=== PATIENT | female | born 1980 | race Caucasian/White ===

== ENCOUNTER 2018-08-24 10:03 | Outpatient (RCR) | payer MEDICARE ==
[2018-08-15] MEDS: IRON SUCROSE 200 MG/10 ML (VENOFER) VIAL IV SCH (13:31)
[2018-08-15 13:33] VITALS: BP 130/89
[2018-08-17 10:44] VITALS: BP 122/82
[2018-08-17] MEDS: IRON SUCROSE 200 MG/10 ML (VENOFER) VIAL IV SCH (12:56)
[2018-08-20 10:26] VITALS: BP 128/90
[2018-08-20] MEDS: IRON SUCROSE 200 MG/10 ML (VENOFER) VIAL IV SCH (10:39)
[2018-08-22] MEDS: IRON SUCROSE 200 MG/10 ML (VENOFER) VIAL IV SCH (09:45)
[2018-08-22 09:46] VITALS: BP 127/86
[~2018-08-24] VITALS: Ht 172.7 cm; Wt 68.5 kg
[~2018-08-24 10:03] MED LIST: AGM875T PO; ALPR0.5T7 PO; CITA-105 PO; DIAZ5TAB3 PO; DIPH25TA82 PO; FENT1PAT6; FLUT16SP22; HYDR-1231 PO; HYDR-690; IBUP-1773 PO; METR500T PO; NORE0.3518 PO; OMEP20CA12 PO; PEDI18TA2 PO; RANI75TA30 PO; TRAM50TA2 PO
[2018-08-24 10:04] VITALS: BP 135/92
[2018-08-24] MEDS ORDERED: IRON SUCROSE 200 MG/10 ML (VENOFER) VIAL IV ONE (10:08)
[2018-08-24] MEDS: IRON SUCROSE 200 MG/10 ML (VENOFER) VIAL IV SCH (10:15)
== END 2018-08-24 10:45 | disposition home or self-care (01) ==
LOC: SDC 10:03
PROVIDERS: ATTEND Family Medicine
DX: D50.9 Iron deficiency anemia, unspecified (principal)
CPT/HCPCS: 96365

== ENCOUNTER 2018-11-07 09:48 | Outpatient (RCR) | payer MEDICARE ==
[2018-09-20 14:50] LABS: ABSOLUTE RETIC # 37 10e9/L (24-90); BASOPHILS % (AUTO) 0 % (0-10); EOSINOPHILS % (AUTO) 1 % (0-10); HEMATOCRIT 36 % (35-52); HEMOGLOBIN 10.3 G/DL (11.5-16.0); LYMPHOCYTES # (AUTO) 1.7 X 10^3 (1.0-4.0); LYMPHOCYTES % (AUTO) 37 % (12-44); MEAN CORPUSCULAR HEMOGLOBIN 24 PG (25-34); MEAN CORPUSCULAR HGB CONC 29 G/DL (32-36); MEAN CORPUSCULAR VOLUME 81 FL (80-99); MONOCYTES # (AUTO) 0.4 X 10^3 (0.0-1.0); MONOCYTES % (AUTO) 8 % (0-12); NEUTROPHILS # (AUTO) 2.4 X 10^3 (1.8-7.8); NEUTROPHILS % (AUTO) 54 % (42-75); PLATELET COUNT 159 10^3/uL (130-400); RETICULOCYTE % 0.85 % (0.50-2.40); WHITE BLOOD COUNT 4.5 10^3/uL (4.3-11.0)
[2018-09-20 15:17] LABS: ALANINE AMINOTRANSFERASE 49 U/L (0-55); ALBUMIN 4.4 GM/DL (3.2-4.5); ALKALINE PHOSPHATASE 74 U/L (40-136); BILIRUBIN,TOTAL 0.3 MG/DL (0.1-1.0); BUN/CREATININE RATIO 10; CALCIUM 9.3 MG/DL (8.5-10.1); CARBON DIOXIDE 23 MMOL/L (21-32); CHLORIDE 107 MMOL/L (98-107); CREATININE SERUM 0.73 MG/DL (0.60-1.30); GFR ESTIMATED > 60; GLUCOSE 90 MG/DL (70-105); POTASSIUM 3.7 MMOL/L (3.6-5.0); SODIUM 140 MMOL/L (135-145); TOTAL PROTEIN 6.9 GM/DL (6.4-8.2)
[2018-10-31 11:36] LABS: BASOPHILS % (AUTO) 1 % (0-10); EOSINOPHILS # (AUTO) 0.1 10^3/uL (0.0-0.3); EOSINOPHILS % (AUTO) 2 % (0-10); HEMATOCRIT 41 % (35-52); HEMOGLOBIN 12.9 G/DL (11.5-16.0); LYMPHOCYTES # (AUTO) 1.2 X 10^3 (1.0-4.0); LYMPHOCYTES % (AUTO) 28 % (12-44); MEAN CORPUSCULAR HEMOGLOBIN 29 PG (25-34); MEAN CORPUSCULAR HGB CONC 32 G/DL (32-36); MEAN CORPUSCULAR VOLUME 92 FL (80-99); MONOCYTES # (AUTO) 0.4 X 10^3 (0.0-1.0); MONOCYTES % (AUTO) 10 % (0-12); NEUTROPHILS # (AUTO) 2.5 X 10^3 (1.8-7.8); NEUTROPHILS % (AUTO) 59 % (42-75); PLATELET COUNT 155 10^3/uL (130-400); RED CELL DISTRIBUTION WIDTH 23.8 % (10.0-14.5); WHITE BLOOD COUNT 4.3 10^3/uL (4.3-11.0)
[2018-10-31 11:53] LABS: PROTHROMBIN TIME PATIENT 13.2 SEC (12.2-14.7)
[2018-10-31 12:01] LABS: ALANINE AMINOTRANSFERASE 44 U/L (0-55); ALBUMIN 4.1 GM/DL (3.2-4.5); ALKALINE PHOSPHATASE 86 U/L (40-136); BILIRUBIN,TOTAL 0.3 MG/DL (0.1-1.0); BUN/CREATININE RATIO 13; CALCIUM 9.1 MG/DL (8.5-10.1); CARBON DIOXIDE 25 MMOL/L (21-32); CHLORIDE 103 MMOL/L (98-107); CREATININE SERUM 0.77 MG/DL (0.60-1.30); GFR ESTIMATED > 60; GLUCOSE 93 MG/DL (70-105); POTASSIUM 4.5 MMOL/L (3.6-5.0); SODIUM 137 MMOL/L (135-145); TOTAL PROTEIN 6.4 GM/DL (6.4-8.2)
[~2018-11-07 09:48] MED LIST changes: +FERRIC CARBOXYMALTOSE (CANCER) 750 MG in NS (IVPB) CANCER CENTER 250 ML IV SCH
== END 2018-12-19 | disposition home or self-care (01) ==
LOC: ONC 09:48
PROVIDERS: ATTEND Internal Medicine Hematology & Oncology
DX: D50.9 Iron deficiency anemia, unspecified (principal); J45.909 Unspecified asthma, uncomplicated; F10.21 Alcohol dependence, in remission; Z98.84 Bariatric surgery status; Z79.899 Other long term (current) drug therapy
CPT/HCPCS: 36415; 80053; 82728; 83540; 85025; 85045; 85610; 96365; 99213; 99214

== ENCOUNTER 2019-02-19 09:56 | Outpatient (RCR) | payer MEDICARE ==
[2019-02-11 09:50] LABS: BASOPHILS % (AUTO) 1 % (0-10); EOSINOPHILS # (AUTO) 0.1 10^3/uL (0.0-0.3); EOSINOPHILS % (AUTO) 2 % (0-10); HEMATOCRIT 42 % (35-52); LYMPHOCYTES # (AUTO) 1.3 X 10^3 (1.0-4.0); LYMPHOCYTES % (AUTO) 22 % (12-44); MEAN CORPUSCULAR HEMOGLOBIN 31 PG (25-34); MEAN CORPUSCULAR HGB CONC 33 G/DL (32-36); MEAN CORPUSCULAR VOLUME 95 FL (80-99); MEAN PLATELET VOLUME 12.1 FL (7.4-10.4); MONOCYTES # (AUTO) 0.7 X 10^3 (0.0-1.0); MONOCYTES % (AUTO) 11 % (0-12); NEUTROPHILS # (AUTO) 3.7 X 10^3 (1.8-7.8); NEUTROPHILS % (AUTO) 64 % (42-75); PLATELET COUNT 146 10^3/uL (130-400); RED CELL DISTRIBUTION WIDTH 15.9 % (10.0-14.5); WHITE BLOOD COUNT 5.8 10^3/uL (4.3-11.0)
[2019-02-11 10:12] LABS: ALANINE AMINOTRANSFERASE 32 U/L (0-55); ALBUMIN 4.1 GM/DL (3.2-4.5); ALKALINE PHOSPHATASE 65 U/L (40-136); BILIRUBIN,TOTAL 0.3 MG/DL (0.1-1.0); BUN/CREATININE RATIO 9; CALCIUM 8.6 MG/DL (8.5-10.1); CARBON DIOXIDE 24 MMOL/L (21-32); CHLORIDE 105 MMOL/L (98-107); CREATININE SERUM 0.75 MG/DL (0.60-1.30); GFR ESTIMATED > 60; GLUCOSE 91 MG/DL (70-105); POTASSIUM 4.1 MMOL/L (3.6-5.0); SODIUM 140 MMOL/L (135-145); TOTAL PROTEIN 6.6 GM/DL (6.4-8.2)
== END 2019-05-12 | disposition home or self-care (01) ==
LOC: ONC 09:56
PROVIDERS: ATTEND Internal Medicine Hematology & Oncology
DX: D50.8 Other iron deficiency anemias (principal); K90.9 Intestinal malabsorption, unspecified; Z98.84 Bariatric surgery status; Z87.19 Personal history of other diseases of the digestive system; Z72.0 Tobacco use
CPT/HCPCS: 36415; 80053; 82728; 85025; 96365

== ENCOUNTER 2023-01-01 10:48 | Emergency (ER) | payer MEDICARE ==
[~2023-01-01] VITALS: Ht 170 cm; Wt 66.3 kg
[~2023-01-01 10:48] MED LIST changes: -FERRIC CARBOXYMALTOSE (CANCER) 750 MG in NS (IVPB) CANCER CENTER 250 ML IV SCH
[2023-01-01] MEDS ORDERED: diphenhydrAMINE INJ 50 MG/ML VIAL IM ONE (11:00)
[2023-01-01] MEDS ORDERED: ACETAMINOPHEN 500 MG TABLET PO ONE (11:00)
[2023-01-01] MEDS ORDERED: PROCHLORPERAZINE INJ 10 MG/2ML VIAL IM ONE (11:00)
[2023-01-01] MEDS ORDERED: KETOROLAC INJ 15 MG/ML VIAL IM ONE (11:00)
--- NOTE | 2023-01-01 11:05 | ED General ---
General Chief Complaint: General Problems/Pain Stated Complaint: ELEV BP Source of Information: Patient, RN/MD Exam Limitations: No Limitations History of Present Illness Date Seen by Provider: Jan 01, 2023 Time Seen by Provider: 10:51 Initial Comments 42-year-old female with past medical history of chronic migraines and anxiety coming in as a referral from the walk-in clinic due to headache and elevated blood pressure. Her blood pressure is typically normal, its been elevated the past couple days more than 200 systolic. She states she is had a lot of changes in her medications over the past 2 and half weeks. She was started on metoprolol 2 and half weeks ago, and taken off some of her anxiety medications including her Xanax roughly 3 months ago. She now is taking duloxetine which she states gives her headache in the morning when she takes it. She states she has a headache every morning until roughly 11 AM. She has not taken anything for it as of yet. Her typical headache is on the right side of her head, this once more on the left voodoo as well which is new. It is much better today than it was yesterday. Denies any neck stiffness, fever, vision changes, weakness, numbness, or any other concerns. Allergies and Home Medications Allergies Coded Allergies: No Known Drug Allergies (Unverified , 05/16/14) Patient Home Medication List Home Medication List Reviewed: Yes Alprazolam (Alprazolam) 0.5 Mg Tablet, 0.5 MG PO Q6H PRN for ANXIETY, (Reported) Entered as Reported by: SUSAN ALVAREZ on 08/20/142056 Citalopram Hydrobromide (Citalopram Hbr) 40 Mg Tablet, 40 MG PO DAILY, (Reported) Entered as Reported by: SUSAN ALVAREZ on 08/20/142056 Diphenhydramine Hcl (Diphenhydramine 25 Mg) 25 Mg Tablet, 25-50 MG PO HS, (Reported) Entered as Reported by: LEATHA WILKS on 08/21/14 0940 Fluticasone Propionate (Flonase Nasal [place]) 16 Gm Naspr, 1 SPRAY NA BID PRN for ALLERGIES, (Reported) Entered as Reported by: SUSAN ALVAREZ on 08/20/142056 Ibuprofen (Ibuprofen) 600 Mg Tablet, 600 MG PO Q6H Prescribed by: LEDA MA on 11/26/14 1359 Lisinopril (Lisinopril) 5 Mg Tablet, 5 MG PO DAILY Prescribed by: VDEA DYSON on 01/01/23 1141 Norethindrone (Jencycla) 0.35 Mg Tablet, 0.35 MG PO DAILY, (Reported) Entered as Reported by: SUSAN ALVAREZ on 08/20/142056 Omeprazole (Omeprazole) 20 Mg Capsule.dr, 40 MG PO DAILY PRN for ACID REFLUX, (Reported) Entered as Reported by: LEATHA WILKS on 08/21/14 0940 Pedi Mv No.79/Ferrous Fumarate (Flintstones with Iron Tab Chew) 18 Mg Tab.chew, 18 MG PO BID Prescribed by: CINTHYA TORRES on 08/26/14 0805 Review of Systems Review of Systems Constitutional: No fever EENTM: no symptoms reported Respiratory: no symptoms reported Cardiovascular: see HPI Gastrointestinal: no symptoms reported Genitourinary: no symptoms reported Musculoskeletal: no symptoms reported Skin: no symptoms reported Psychiatric/Neurological: See HPI Hematologic/Lymphatic: No Symptoms Reported Past Bdbiavy-Uowsgk-Pfajrs Hx Patient Social History Tobacco Use?: Yes Tobacco type used: Cigarettes Smoking Status: Current Everyday Smoker Substance use?: No Alcohol Use?: No Immunizations Up To Date Tetanus Booster (TDap): Less than 5yrs PED Vaccines UTD: Yes Past Medical History Abdominal, Section, Gallbladder Asthma, Pneumonia Valvular Heart Disease Reproductive Disorders: Yes Female Reproductive Disorders: Ovarian Cyst Sexually Transmitted Disease: No HIV/AIDS: No Gastroesophageal Reflux, Liver Disease/Jaundice, Pancreatitis, Ulcer, Gall Bladder Disease Osteoporosis, Arthritis, Chronic Back Pain Parathyroid Disease Tonsilitis Loss of Vision: Denies Hearing Impairment: Denies Anxiety, Depression Adverse Reaction/Blood Tranf: No Family Medical History Cardiovascular disease 19 FATHER Congenital heart disease G8 SISTER Diabetes mellitus G8 SISTER FHx: multiple sclerosis 19 MOTHER Multiple Multipr 19 MOTHER No Pertinent Family Hx Physical Exam Vital Signs Vital Signs - First Documented 01/01/23 10:58 Temp 35.3 Pulse 81 Resp 18 B/P (MAP) 217/114 (148) Pulse Ox 100 O2 Delivery Room Air Capillary Refill : Height, Weight, BMI Height: 5'8.00" Weight: 151lbs. 0.0oz. [id number]; BMI Method:Stated General Appearance: WD/WN, Anxious Eyes: Bilateral Eye Normal Inspection, Bilateral Eye PERRL, Bilateral Eye EOMI HEENT: PERRL/EOMI, Normal ENT Inspection, Pharynx Normal Neck: Full Range of Motion, Normal Inspection, Non Tender, Supple Respiratory: Chest Non Tender, Lungs Clear, Normal Breath Sounds, No Accessory Muscle Use, No Respiratory Distress Cardiovascular: Regular Rate, Rhythm, No Edema, Normal Peripheral Pulses Back: Normal Inspection Extremity: Normal Capillary Refill, Normal Inspection, Normal Range of Motion, Non Tender, No Calf Tenderness, No Pedal Edema Neurologic/Psychiatric: Alert, Oriented x3, No Motor/Sensory Deficits, Normal 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/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, 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 as 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, Other (Normal vbbhpb-[id number]-djoo, normal gait, normal visual johnson and visual acuity) Skin: Normal Color, Warm/Dry Progress/Results/Core Measures Suspected Sepsis SIRS Temperature: Pulse: Respiratory Rate: Blood Pressure / Mean: Results/Orders My Orders Orders - VEDA DYSON MD Ct Head Wo (01/01/23 11:00) Prochlorperazine Injection (Prochlorpera (01/01/23 11:00) Diphenhydramine Injection (Diphenhydram (01/01/23 11:00) Acetaminophen Tablet (Acetaminophen Ta (01/01/23 11:00) Ketorolac Injection (Ketorolac Injection (01/01/23 11:00) Ct Head Wo (01/01/23 11:42) Lisinopril Tablet (Lisinopril Tablet) (01/01/23 11:45) Medications Given in ED Current Medications Medications Dose Ordered Sig/Anatoyl Route Start Time Stop Time Status Last Admin Dose Admin Acetaminophen 1,000 mg ONCE ONCE PO 01/01/23 11:00 01/01/23 11:03 DC 01/01/23 11:34 1,000 MG Diphenhydramine HCl 25 mg ONCE ONCE IM 01/01/23 11:00 01/01/23 11:03 DC 01/01/23 11:36 25 MG Ketorolac Tromethamine 15 mg ONCE ONCE IM 01/01/23 11:00 01/01/23 11:03 DC 01/01/23 11:35 15 MG Lisinopril 10 mg ONCE ONCE PO 01/01/23 11:45 01/01/23 11:46 DC 01/01/23 11:54 10 MG Prochlorperazine Edisylate 10 mg ONCE ONCE IM 01/01/23 11:00 01/01/23 11:03 DC 01/01/23 11:34 10 MG Vital Signs/I&O 01/01/23 01/01/23 10:58 12:02 Temp 35.3 Pulse 81 Resp 18 B/P (MAP) 217/114 (148) 179/111 Pulse Ox 100 O2 Delivery Room Air Capillary Refill : Progress Note : Progress Note 42-year-old female with above history coming in due to elevated blood pressure and headache. ABCs were intact and vitals were stable on presentation although she is very hypertensive. She has been hypertensive for the past couple of days. She has a nonfocal neuro exam which is reassuring here. CT head ordered and interpreted by me showing no obvious intracranial hemorrhage or mass. Initial CT cut off the very top portion of the head so did have to be repeated. She was given an IM cocktail for her headache. She has no red flags with headache since this has been going on since she was a child every day, well-appe aring, no meningismus or fever making meningitis unlikely. I will start her on an oral medication for her blood pressure and have her follow-up with her PCP Diagnostic Imaging Diagonstic Imaging: CT (head) Comments [facility]. [place], [place] NAME: MARIANA CRANE [facility] REC#: [id number] PT STATUS: REG ER : 1980 PHYSICIAN: VEDA DYSON MD ADMIT DATE: 01/01/23/ER FS Draft Date of Exam:01/01/23 CT HEAD WO PROCEDURE: CT head without contrast. TECHNIQUE: Multiple contiguous axial images were obtained through the brain without the use of intravenous contrast. Auto Exposure Controls were utilized during the CT exam to meet ALARA standards for radiation dose reduction. INDICATION: Headache. Comparison is made to prior head CT 11/24/2014. The ventricles and sulci are within normal limits. No sulcal effacement or midline shift is identified. No acute intra-axial or extra-axial hemorrhage is detected. Cisterns are patent. Visualized paranasal sinuses are clear. IMPRESSION: No acute intracranial process is detected. Dictated on workstation # [id number] Dict: 01/01/23 1130 Trans: 01/01/23 1207 [facility] [id number] Interpreted by: LUIS LAKE MD Electronically signed by: Departure Impression Primary Impression: Hypertension Qualified Codes: I10 - Essential (primary) hypertension Additional Impression: Headache Qualified Codes: G44.219 - Episodic tension-type headache, not intractable Disposition: 01 HOME, SELF-CARE Condition: Stable Departure-Patient Inst. Decision time for Depature: 12:15 Referrals: LEATHA MARVIN APRN (PCP) Primary Care Physician [facility] (Family) Primary Care Physician Patient Instructions: Headache, Adult ED, High Blood Pressure ED Add. Discharge Instructions: Continue to take your blood pressure once or twice a day and write it down in a journal. If it is persistently elevated, then your primary physician may need to increase your doses of your medicines or start you on a new 1. We will start you on a medicine called lisinopril in the meantime which you can start taking tomorrow since we gave you your dose today in the ER. Scripts Lisinopril (Lisinopril) 5 Mg Tablet 5 MG PO DAILY for 30 Days, #30 TAB Prov: VEDA DYSON MD 01/01/23 Work/School Note: Work Release Form Date Seen in the Emergency Department: Jan 01, 2023 Return to Work: Jan 02, 2023 Restrictions: No Restrictions VEDA DYSON MD Jan 01, 2023 11:05
--- NOTE | 2023-01-01 11:37 | Diagnostic Imaging Report ---
PROCEDURE: CT head without contrast. TECHNIQUE: Multiple contiguous axial images were obtained through the brain without the use of intravenous contrast. Auto Exposure Controls were utilized during the CT exam to meet ALARA standards for radiation dose reduction. INDICATION: Headache. Comparison is made to prior head CT 11/24/2014. The ventricles and sulci are within normal limits. No sulcal effacement or midline shift is identified. No acute intra-axial or extra-axial hemorrhage is detected. Cisterns are patent. Visualized paranasal sinuses are clear. IMPRESSION: No acute intracranial process is detected. Dictated by: Dictated on workstation # [id number]
[2023-01-01] MEDS ORDERED: LISI5TAB20 PO (11:41)
[2023-01-01 12:02] VITALS: BP 179/111
== END 2023-01-01 12:05 | disposition home or self-care (01) ==
LOC: EDUNIT# 10:48 → ER FS 10:49
DX: I10 Essential (primary) hypertension (principal); R51.9 Headache, unspecified; F41.9 Anxiety disorder, unspecified; T42.4X6A Underdosing of benzodiazepines, initial encounter; F17.210 Nicotine dependence, cigarettes, uncomplicated; Z91.128 Patient's intentional underdosing of medication regimen for other reason; Z79.899 Other long term (current) drug therapy
CPT/HCPCS: 70450; 99284